=== PATIENT | female | born 1965 | race Caucasian/White ===

== ENCOUNTER 2019-06-11 08:16 | Outpatient (RCR) | payer BC, SELFPAY | END 2019-06-12 00:01 | LOC: ONCMED 08:16 | PROVIDERS: Family Provider Nurse Practitioner Family; Visit Provider Internal Medicine Medical Oncology | DX: D50.0 Iron deficiency anemia secondary to blood loss (chronic) (principal); D69.1 Qualitative platelet defects ==

== ENCOUNTER 2019-06-13 15:10 | Emergency (ER) | payer BC, SELFPAY ==
--- NOTE | 2019-06-13 | XRR_ITS ---
PROCEDURE INFORMATION: Exam: XR Left Knee Exam date and time: 06/13/2019 4:28 PM Age: 53 years old Clinical indication: Injury or trauma; Fall; Initial encounter; Blunt trauma; Knee; Left; Injury date: 06/13/19; Additional info: Unknown TECHNIQUE: Imaging protocol: XR Left knee. Views: 3 views. COMPARISON: No relevant prior studies available. FINDINGS: Bones/joints: There is no joint effusion. The bone density is appropriate. No periosteal reaction. No osteomyelitis. No acute fracture or dislocation. No bony destructive changes. Soft tissues: No foreign body. No gas in the soft tissues. XR/XR knee LT 3V* [id number] IMPRESSION: No acute bony abnormality.
[2019-06-13 15:49] VITALS: BP 186/105; PULSE 98; RESP 16; TEMP 37.3; O2SAT 98; BMI 30.4
--- NOTE | 2019-06-13 16:03 | CTR_ITS ---
PROCEDURE INFORMATION: Exam: CT Maxillofacial Without Contrast Exam date and time: 06/13/2019 4:21 PM Age: 53 years old Clinical indication: Injury or trauma; Fall; Initial encounter; Blunt trauma (contusions or hematomas); Nose and lip/oral cavity; Upper; Injury date: 06/13/19; Additional info: Unknown TECHNIQUE: Imaging protocol: Computed tomography images of the face without contrast. Total DLP: 7742.17 mGy-cm Radiation optimization: All CT scans at this facility use at least one of these dose optimization techniques: automated exposure control; mA and/or kV adjustment per patient size (includes targeted exams where dose is matched to clinical indication); or iterative reconstruction. COMPARISON: No relevant prior studies available. FINDINGS: Orbits: Orbits are normal. Globes are unremarkable. Sinuses: Normal. No air-fluid levels. Bones/joints: No acute fracture. Soft tissues: There is mild soft tissue edema overlying the left frontal bone superior to the left orbit.. CT/CT facial bones wo con* [id number] IMPRESSION: No acute fracture. Mild soft tissue edema is noted. Radiation Dose CTDIVOL = (mGy): DLP = 7742.17 (mGy-cm)
--- NOTE | 2019-06-13 16:07 | XRR_ITS ---
PROCEDURE INFORMATION: Exam: XR Cervical Spine, 2 or 3 Views Exam date and time: 06/13/2019 4:27 PM Age: 53 years old Clinical indication: Injury or trauma; Fall; Initial encounter; Blunt trauma; Injury date: 06/13/19; Additional info: Unknown TECHNIQUE: Imaging protocol: XR of the cervical spine, 2 or 3 views. COMPARISON: No relevant prior studies available. FINDINGS: Vertebrae: There diffuse degenerative changes. Disc space narrowing and endplate sclerosis with marginal osteophytes are greatest at C 5 6 and C6-C7. No acute fracture. Normal alignment. Vasculature: There is a right IJ port with tip off the film. Soft tissues: Normal. XR/XR cervical spine 2V* [id number] IMPRESSION: No acute bony abnormality. Degenerative changes are noted.
--- NOTE | 2019-06-13 16:07 | XRR_ITS ---
PROCEDURE INFORMATION: Exam: XR Left Wrist Exam date and time: 06/13/2019 4:27 PM Age: 53 years old Clinical indication: Injury or trauma; Fall; Initial encounter; Blunt trauma (contusions or hematomas; Wrist; Left; Injury date: 06/14/19; Additional info: Unknown TECHNIQUE: Imaging protocol: XR Left wrist. Views: 1 or 2 views. COMPARISON: No relevant prior studies available. FINDINGS: Bones/joints: Normal. Soft tissues: Normal. XR/XR wrist LT 2V [id number] IMPRESSION: No acute findings.
--- NOTE | 2019-06-13 17:25 | W.ED.FALL ---
HPI - Fall General: Chief Complaint: Fall Stated Complaint: fall with multiple complaints Time Seen by Provider: 06/13/19 17:27 PFSH ED PFSH: Statuses (acute, chronic, etc) shown below reflect problem list status as previously entered and may not be historically accurate Social History Smoking and tobacco status: never smoked Course Vital Signs: Vital signs: Vital Signs Temperature 99.1 F 06/13/19 15:49 Pulse Rate 98 06/13/19 15:49 Respiratory Rate 16 06/13/19 15:49 Blood Pressure 186/105 06/13/19 15:49 Pulse Oximetry 98 06/13/19 15:49 Coding Level of Care Code ED Acetylene Cutter for Amber Pringle
--- NOTE | 2019-06-13 17:27 | W.ED.FALL ---
HPI - Fall General: Chief Complaint: Fall Stated Complaint: fall with multiple complaints Time Seen by Provider: 06/13/19 17:27 Source: patient Mode of arrival: ambulatory Limitations: no limitations History of Present Illness: HPI Narrative: 53 yo f came to the er pov for fall. 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 Pt states that she was standing when she fell. Pt states that she fell flat on her face. Pt does have some mild pain in her neck and face along with left knee and wrist. There is also some swelling in the left knee and wrist. Pt denies any loc at this time. MD complaint: fall Fall from: standing Place fall occurred: home Loss of consciousness: None Location of injury: face and neck Location of injury - extremities: Left: hand and knee Severity: moderate Severity scale (1-10): 4 Associated symptoms-after fall: Reports neck pain; Denies no associated symptoms, abdominal pain or headache(s) Review of Systems General: Reports: 10 or more systems reviewed and unremarkable except in HPI and below Const: Denies: fever Eyes: Denies: change in vision ENMT: Denies: throat pain Resp: Denies: shortness of breath GI: Denies: abdominal pain : Denies: flank pain Musc: Reports: neck pain, extremity pain and extremity swelling Skin/Breast: Denies: rash Neuro: Denies: headache Psych: Denies: anxiety Endo: Denies: excessive urination Juan/Lymph: Denies: easy bruising All/Imm: Denies: hives PFSH ED PFSH: Statuses (acute, chronic, etc) shown below reflect problem list status as previously entered and may not be historically accurate Social History Smoking and tobacco status: never smoked Physical Exam Const: COMMON NORMALS: oriented x3 EXAM LIMITATIONS: no altered mental status GENERAL APPEARANCE: cooperative ORIENTATION/CONSCIOUSNESS: Yes awake, Yes oriented to person, Yes oriented to place and Yes oriented to time HENMT: HEAD & SCALP: laceration (above lip, middle of nose) Eye: COMMON NORMALS: PERRL PUPIL: Yes PERRL Chest: COMMONS NORMALS: inspection of chest normal Resp: COMMON NORMALS: normal respiratory effort GI: COMMON NORMALS: normal to inspection, nondistended, normoactive bowel sounds : COMMON NORMALS: Yes no CVA tenderness BLADDER/KIDNEY EXAM: Yes no CVA tenderness Back/Pelvis: COMMON NORMALS: no CVA tenderness Extremity: COMMON NORMALS: normal to inspection Neuro: COMMON NORMALS: oriented x3 SENSORIUM/ORIENTATION: Yes oriented to person, Yes oriented to place and Yes oriented to time Skin: COMMON NORMALS: no rashes or lesions noted GENERAL SKIN EXAM: no rashes or lesions noted Course Vital Signs: Vital signs: Vital Signs Temperature 99.1 F 06/13/19 15:49 Pulse Rate 98 06/13/19 15:49 Respiratory Rate 16 06/13/19 15:49 Blood Pressure 186/105 06/13/19 15:49 Pulse Oximetry 98 06/13/19 15:49 Coding Level of Care Code ED Conference Center Manager for Amber Pringle
--- NOTE | 2019-06-13 19:00 | W.ED.FALL ---
HPI - Fall General: Chief Complaint: Fall Stated Complaint: fall with multiple complaints Time Seen by Provider: 06/13/19 17:27 Source: patient Mode of arrival: ambulatory History of Present Illness: Place fall occurred: home Review of Systems General: Reports: 10 or more systems reviewed and unremarkable except in HPI and below PFSH ED PFSH: Statuses (acute, chronic, etc) shown below reflect problem list status as previously entered and may not be historically accurate Social History Smoking and tobacco status: never smoked Physical Exam Const: COMMON NORMALS: oriented x3 and alert GENERAL APPEARANCE: cooperative HENMT: COMMON NORMALS: external nose normal (large abrasion to the bridge of the nose) HEAD & SCALP: abrasion and contusion FACE & SINUS: facial abrasion, facial ecchymosis, facial erythema and facial laceration NOSE: external nose normal (large abrasion to the bridge of the nose) Neck/C-Spine: COMMON NORMALS: full ROM GENERAL: Yes normal visual inspection CERVICAL SPINE: Yes cervical ROM normal, Yes cervical ROM abnormal and Yes pain with cervical ROM Extremity: RIGHT UPPER EXTREMITY: Yes hand & digits LEFT UPPER EXTREMITY: Yes hand & digits (swelling and abrasion) Neuro: COMMON NORMALS: oriented x3 SENSORIUM/ORIENTATION: Yes alert CRANIAL NERVES: Yes CN normal except as noted GAIT: Yes normal gait Skin: TRAUMA: abrasion (face and nose) and laceration Procedures Laceration Laceration 1: Site: face and lip Size (cm): 2 Description: irregular Depth: simple, single layer Local Anesthetic: lidocaine 1% and with epi Skin layer closed with: nylon Size (cm): 6-0 Number of sutures: 1 Technique: simple, interrupted Course Vital Signs: Vital signs: Vital Signs Temperature 99.1 F 06/13/19 15:49 Pulse Rate 98 06/13/19 15:49 Respiratory Rate 16 06/13/19 15:49 Blood Pressure 186/105 06/13/19 15:49 Pulse Oximetry 98 06/13/19 15:49 Discharge Plan Discharge Patient Disposition: Home, Self-Care Clinical Impression: Fall, Facial abrasion, Contusion of face, Laceration of lip without complication Condition: Stable Prescriptions: No Action Vitamin C 1,000 mg Tablet 500 mg PO DAILY RF: 0 liothyronine 25 mcg tablet 25 mcg PO DAILY RF: 0 metformin 1,000 mg Tablet 1,000 mg PO BID RF: 0 levothyroxine 150 mcg tablet 150 mcg PO DAILY RF: 0 lisinopril 2.5 mg tablet 2.5 mg PO DAILY RF: 0 Nortrel 1/35 (28) 1-35 mg-mcg tablet 1 tab PO DAILY RF: 0 ferrous gluconate 324 mg (38 mg iron) Tablet 324 mg PO BID RF: 0 Referrals: Grecia Eller APN [Primary Care Provider] - Patient Instructions: Contusion, Laceration (ED), Abrasion (ED) Activity Restrictions/Additional Instructions: Keep wounds clean and dry Clean twice a day with hydrogen peroxide Return to the ER or see your primary care physician in 7 days for suture removal Ice packs for pain and swelling 20 minutes at a time Return to the ER for any problems or concerns Coding Level of Care Code ED Textile Science Technician for Amber Pringle Exam Problem Focused
--- NOTE | 2019-06-13 19:07 | ED_ITS ---
HPI - Fall General: Chief Complaint: Fall Stated Complaint: fall with multiple complaints Time Seen by Provider: 06/13/19 17:27 Source: patient Mode of arrival: ambulatory History of Present Illness: Place fall occurred: home Review of Systems General: Reports: 10 or more systems reviewed and unremarkable except in HPI a nd below PFSH ED PFSH: Statuses (acute, chronic, etc) shown below reflect problem list status as previously entered and may not be historically accurate Social History Smoking and tobacco status: never smoked Physical Exam Const: COMMON NORMALS: no apparent distress, oriented x3 and alert GENERAL APPEARANCE: cooperative and in distress (mild) ORIENTATION/CONSCIOUSNESS: Yes oriented to person, Yes oriented to place and Yes oriented to time HENMT: COMMON NORMALS: external nose normal (Large abrasion to the bridge of the nose) HEAD & SCALP: abrasion, contusion and laceration NOSE: external nose normal (Large abrasion to the bridge of the nose) and septum normal MOUTH: lip normal (2 cm x 2 cm partial-thickness abrasion with continued bleeding) and lip abnormal (Swelling and hematoma) Neck/C-Spine: COMMON NORMALS: full ROM and no meningeal signs GENERAL: Yes normal visual inspection CERVICAL SPINE: Yes cervical ROM normal Extremity: LEFT UPPER EXTREMITY: Yes wrist (Moderate swelling and contusion) LEFT LOWER EXTREMITY: Yes knee joint (Tenderness to palpation with mild abrasion) Neuro: COMMON NORMALS: oriented x3, CN's II-XII intact bilaterally, moves all extremities, no focal motor deficits, no sensory deficits noted, deep tendon reflexes 2+ bilaterally and gait normal SENSORIUM/ORIENTATION: Yes alert, Yes oriented to person, Yes oriented to place and Yes oriented to time MENINGEAL SIGNS: Yes no meningeal signs CRANIAL NERVES: Yes CN normal except as noted GAIT: Yes normal gait Skin: TRAUMA: other (Multiple abrasions and contusions to the forehead, nose, and upper lip) Procedures Laceration Laceration 1: Site: lip (2 cm x 2 cm partial-thickness abrasion) Description: irregular and contaminated Depth: simple, single layer Local Anesthetic: lidocaine 1% and with epi Pre-repair: wound explored Skin layer closed with: nylon Size (cm): 6-0 Number of sutures: 1 Course Vital Signs: Vital signs: Vital Signs Temperature 99.1 F 06/13/19 15:49 Pulse Rate 98 06/13/19 15:49 Respiratory Rate 16 06/13/19 15:49 Blood Pressure 186/105 06/13/19 15:49 Pulse Oximetry 98 06/13/19 15:49 Discharge Plan Discharge Patient Disposition: Home, Self-Care Clinical Impression: Fall, Facial abrasion, Contusion of face, Laceration of lip without complication Condition: Stable Prescriptions: No Action Vitamin C 1,000 mg Tablet 500 mg PO DAILY RF: 0 liothyronine 25 mcg tablet 25 mcg PO DAILY RF: 0 metformin 1,000 mg Tablet 1,000 mg PO BID RF: 0 levothyroxine 150 mcg tablet 150 mcg PO DAILY RF: 0 lisinopril 2.5 mg tablet 2.5 mg PO DAILY RF: 0 Nortrel 1/35 (28) 1-35 mg-mcg tablet 1 tab PO DAILY RF: 0 ferrous gluconate 324 mg (38 mg iron) Tablet 324 mg PO BID RF: 0 Referrals: Grecia Eller APN [Primary Care Provider] - Patient Instructions: Laceration (ED), Abrasion (ED), Contusion Coding Level of Care Code ED Medical Administrative for Amber Pringle
--- NOTE | 2019-06-13 19:14 | PC.NURSE ---
Report received from CHELSEA Zacarias and transferred to CHELSEA Garcia
[2019-06-13 19:52] VITALS: BP 150/92; PULSE 101; RESP 18; O2SAT 96
== END 2019-06-13 20:00 | disposition home or self-care (01) ==
PROVIDERS: Emergency Provider Family Medicine; Family Provider Nurse Practitioner Family; PCP Nurse Practitioner Family
DX: S01.511A Laceration without foreign body of lip, initial encounter (principal); S00.83XA Contusion of other part of head, initial encounter; W19.XXXA Unspecified fall, initial encounter; Z79.84 Long term (current) use of oral hypoglycemic drugs
CPT/HCPCS: 12011; 70486; 72040; 73100; 73562; 99282; J2001

== ENCOUNTER → 2019-06-18 07:37 | Outpatient (BNVA) | payer BC, SELFPAY | PROVIDERS: Family Provider Nurse Practitioner Family; PCP Nurse Practitioner Family; Visit Provider Nurse Practitioner Family | DX: Z09 Encounter for follow-up examination after completed treatment for conditions other than malignant neoplasm (principal); E11.9 Type 2 diabetes mellitus without complications; D64.9 Anemia, unspecified; S00.83XA Contusion of other part of head, initial encounter; S00.81XA Abrasion of other part of head, initial encounter; X58.XXXA Exposure to other specified factors, initial encounter | CPT/HCPCS: 83036; 85025 ==

== ENCOUNTER → 2019-07-02 11:42 | Outpatient (BNVA) | payer BC, SELFPAY | PROVIDERS: Family Provider Nurse Practitioner Family; PCP Nurse Practitioner Family; Visit Provider Internal Medicine Medical Oncology | DX: D64.9 Anemia, unspecified (principal) | CPT/HCPCS: 85025 ==

== ENCOUNTER 2019-07-10 05:47 | Outpatient (RCR) | payer BC, SELFPAY ==
[2019-07-09] VITALS (9 sets, daily range): BP systolic 131–168; BP diastolic 77–84; PULSE 94–106; RESP 18; TEMP 37–37.4; O2SAT 18–99
[2019-07-09 08:54] LABS: Basophils % 0.3 %; Eosinophils # 0.1 10^3/uL (0.0-0.8); Lymphocytes # 0.8 10^3/uL (0.8-4.8); Lymphocytes % 13.7 %; Mean Corpuscular HGB Conc 27.4 g/dL (30.0-36.0); Mean Corpuscular Hemoglobin 24.6 pg (28.0-34.0); Mean Corpuscular Volume 89.7 fL (81-99); Mean Platelet Volume 12.4 fL (7.4-10.4); Monocytes # 0.5 10^3/uL (0.2-0.9); Monocytes % 8.4 %; Neutrophils # 4.6 10^3/uL (1.8-7.7); Neutrophils % 76.1 %; Nucleated Red Blood Cells % 0 %; Platelet Count 249 10^3/cmm (130-400); Red Blood Count 2.32 10^6/uL (4.1-5.3); Red Cell Distribution Width 13.9 % (12.1-15.1); White Blood Count 6.1 10^3/uL (4.0-10.0)
[2019-07-09 08:58] LABS: Hematocrit 20.8 % (37.0-47.0); Hemoglobin 5.7 g/dL (11.5-15.3)
[2019-07-09 09:09] LABS: Alanine Aminotransferase 17 U/L (0-33); Albumin Level 3.3 g/dL (3.5-5.2); Alkaline Phosphatase 53 IU/L (35-105); Anion Gap 17.5 (5-19); Aspartate Amino Transferase 16 U/L (0-32); Blood Urea Nitrogen 12 mg/dL (6-20); Calcium 8.6 mg/dL (8.5-10.5); Carbon Dioxide 18 mmol/L (22-29); Chloride 100 mmol/L (98-107); Glomerular Filtration Rate 103.8 mL/min (90-130); Glucose 357 mg/dL (74-109); Potassium 4.5 mmol/L (3.5-5.1); Sodium 131 mmol/L (136-145); Total Bilirubin 0.2 mg/dL (0.15-1.2); Total Protein 6.3 g/dL (6.6-8.7)
[2019-07-09] MEDS: acetaminophen 325 mg Tablet 650 MG PO (09:25)
[2019-07-09] MEDS: diphenhydrAMINE 25 mg Capsule PO (09:36)
[2019-07-09] MEDS: hydrocortisone 10 mg Tablet 50 MG PO (09:37)
[2019-07-09] MEDS: sodium chloride 0.9% 250 ML 999 ML IV (10:10)
[2019-07-09] MEDS: FUROsemide 10 mg/mL SDV 2mL 20 MG IV (15:12)
[2019-07-10 09:05] VITALS: BP 141/82; PULSE 88; RESP 18; TEMP 36.8; O2SAT 100
[2019-07-10 09:20] VITALS: BP 150/84; PULSE 83; RESP 18; TEMP 36.9; O2SAT 99
[2019-07-10 09:35] VITALS: BP 144/81; PULSE 85; RESP 18; TEMP 37.1; O2SAT 100
[2019-07-10 12:50] VITALS: BP 148/82; PULSE 96; RESP 18; TEMP 36.8; O2SAT 97
[2019-07-10] MEDS: hydrocortisone 10 mg Tablet 50 MG PO (14:02)
[2019-07-10] MEDS: acetaminophen 325 mg Tablet 650 MG PO (14:02)
[2019-07-10] MEDS: diphenhydrAMINE 25 mg Capsule PO (14:03)
[2019-07-11] VITALS (10 sets, daily range): BP systolic 147–166; BP diastolic 79–91; PULSE 92–97; RESP 18; TEMP 36.4–37.3; O2SAT 96–99
[2019-07-11 10:33] LABS: Basophils % 0.2 %; Eosinophils # 0.1 10^3/uL (0.0-0.8); Eosinophils % 1.8 %; Hematocrit 24.3 % (37.0-47.0); Hemoglobin 7.1 g/dL (11.5-15.3); Lymphocytes % 17.7 %; Mean Corpuscular HGB Conc 29.2 g/dL (30.0-36.0); Mean Corpuscular Hemoglobin 25.8 pg (28.0-34.0); Mean Corpuscular Volume 88.4 fL (81-99); Mean Platelet Volume 12.3 fL (7.4-10.4); Monocytes # 0.7 10^3/uL (0.2-0.9); Monocytes % 12.4 %; Neutrophils # 3.7 10^3/uL (1.8-7.7); Neutrophils % 67.2 %; Nucleated Red Blood Cells % 0 %; Platelet Count 193 10^3/cmm (130-400); Red Blood Count 2.75 10^6/uL (4.1-5.3); Red Cell Distribution Width 15.3 % (12.1-15.1); White Blood Count 5.5 10^3/uL (4.0-10.0)
[2019-07-11] MEDS: FUROsemide 10 mg/mL SDV 2mL 20 MG IV (14:30)
[2019-07-11] MEDS: sodium chloride 0.9% 250 ML 999 ML IV (15:45)
[2019-07-11] MEDS: hydrocortisone 10 mg Tablet 50 MG PO (15:46)
[2019-07-11] MEDS: diphenhydrAMINE 25 mg Capsule PO (15:47)
[2019-07-11] MEDS: acetaminophen 325 mg Tablet 650 MG PO (15:48)
== END 2019-07-13 23:59 | disposition home or self-care (01) ==
LOC: ONCMED 05:47
PROVIDERS: Family Provider Nurse Practitioner Family; PCP Nurse Practitioner Family; Visit Provider Internal Medicine Medical Oncology
DX: D69.1 Qualitative platelet defects (principal)
CPT/HCPCS: 36430; 80053; 85025; 86850; 86900; J1940; J7050; J8499; P9037; P9040

== ENCOUNTER → 2019-07-11 09:18 | Outpatient (BNVA) | payer BC, SELFPAY | PROVIDERS: Family Provider Nurse Practitioner Family; PCP Nurse Practitioner Family; Visit Provider Internal Medicine Medical Oncology | DX: Z01.89 Encounter for other specified special examinations (principal) | CPT/HCPCS: 85025 ==

== ENCOUNTER → 2019-07-17 09:40 | Outpatient (BNVA) | payer BC, SELFPAY | PROVIDERS: Visit Provider Internal Medicine | DX: B19.20 Unspecified viral hepatitis C without hepatic coma (principal); Z86.19 Personal history of other infectious and parasitic diseases; D69.1 Qualitative platelet defects | CPT/HCPCS: 85025 ==

== ENCOUNTER → 2019-07-23 09:20 | Outpatient (BNVA) | payer BC, SELFPAY | PROVIDERS: Visit Provider Internal Medicine Medical Oncology | DX: D64.9 Anemia, unspecified (principal) | CPT/HCPCS: 85025 ==

== ENCOUNTER 2019-07-27 05:45 | Outpatient (RCR) | payer BC, SELFPAY ==
[2019-07-25] MEDS: sodium chloride 0.9% 250 ML 999 ML IV (09:00)
[2019-07-25 09:05] VITALS: BP 150/82; PULSE 80; RESP 18; TEMP 36.9; O2SAT 100
[2019-07-25 09:50] VITALS: BP 165/80; RESP 18
[2019-07-25 10:10] VITALS: BP 181/79; PULSE 99; RESP 26; TEMP 37.2; O2SAT 97
[2019-07-25 10:15] VITALS: BP 165/84; PULSE 75; RESP 18; TEMP 36.9; O2SAT 100
[2019-07-25] MEDS: acetaminophen 325 mg Tablet 650 MG PO (14:55)
[2019-07-25] MEDS: diphenhydrAMINE 25 mg Capsule PO (14:55)
[2019-07-25] MEDS: hydrocortisone 10 mg Tablet 50 MG PO (14:56)
[2019-07-27] MEDS: sodium chloride 0.9% 250 ML 999 ML IV (09:40)
[2019-07-27] MEDS: acetaminophen 325 mg Tablet 650 MG PO (09:40)
[2019-07-27 11:13] VITALS: BP 189/100; PULSE 112; RESP 28; TEMP 37.2; O2SAT 89
[2019-07-27] MEDS: hydrocortisone 10 mg Tablet 50 MG PO ×2 (11:26→11:27)
[2019-07-27] MEDS: diphenhydrAMINE 25 mg Capsule PO (11:26)
== END 2019-08-11 23:59 | disposition home or self-care (01) ==
LOC: ONCMED 05:45
PROVIDERS: Visit Provider Internal Medicine Medical Oncology
DX: D69.1 Qualitative platelet defects (principal); D50.9 Iron deficiency anemia, unspecified
CPT/HCPCS: 36430; 36591; 86900; J7050; J8499; P9035

== ENCOUNTER → 2019-07-30 14:09 | Outpatient (BNVA) | payer BC, SELFPAY | PROVIDERS: Visit Provider Internal Medicine Medical Oncology | DX: D69.1 Qualitative platelet defects (principal) | CPT/HCPCS: 85007; 85027 ==

== ENCOUNTER → 2019-08-15 09:45 | Outpatient (BNVA) | payer BC, SELFPAY | PROVIDERS: Visit Provider Internal Medicine Medical Oncology | DX: D69.1 Qualitative platelet defects (principal) | CPT/HCPCS: 85025 ==

== ENCOUNTER 2019-08-24 05:58 | Outpatient (RCR) | payer BC, SELFPAY | END 2019-09-11 23:59 | disposition home or self-care (01) | LOC: ONCMED 05:58 | PROVIDERS: Visit Provider Internal Medicine Medical Oncology | DX: Z45.2 Encounter for adjustment and management of vascular access device (principal) | CPT/HCPCS: 96523 ==

== ENCOUNTER 2019-09-19 07:03 | Outpatient (RCR) | payer BC, SELFPAY | END 2019-10-11 23:59 | disposition home or self-care (01) | LOC: ONCMED 07:03 | PROVIDERS: Visit Provider Internal Medicine Medical Oncology | DX: Z45.2 Encounter for adjustment and management of vascular access device (principal) | CPT/HCPCS: 96523 ==

== ENCOUNTER 2019-10-19 06:57 | Outpatient (RCR) | payer BC, SELFPAY | END 2019-11-11 23:59 | disposition home or self-care (01) | LOC: ONCMED 06:57 | PROVIDERS: Visit Provider Internal Medicine Medical Oncology | DX: Z45.2 Encounter for adjustment and management of vascular access device (principal); D50.0 Iron deficiency anemia secondary to blood loss (chronic); D69.1 Qualitative platelet defects | CPT/HCPCS: 96523 ==

== ENCOUNTER → 2019-11-13 11:06 | Outpatient (BNVA) | payer BC, SELFPAY | PROVIDERS: Visit Provider Nurse Practitioner Family | DX: E11.9 Type 2 diabetes mellitus without complications (principal) | CPT/HCPCS: 80053; 80061; 83036; 85025 ==

== ENCOUNTER 2019-11-16 07:17 | Outpatient (CLI) | payer BC, SELFPAY | END 2019-11-16 07:18 | disposition home or self-care (01) | PROVIDERS: Visit Provider Internal Medicine Medical Oncology | DX: Z45.2 Encounter for adjustment and management of vascular access device (principal); D50.0 Iron deficiency anemia secondary to blood loss (chronic); D69.1 Qualitative platelet defects | CPT/HCPCS: 96523 ==

== ENCOUNTER 2019-12-25 06:45 | Outpatient (RCR) | payer BC, SELFPAY ==
[2019-12-24 11:43] LABS: Basophils % 0.2 %; Eosinophils # 0.1 10^3/uL (0.0-0.8); Eosinophils % 1.6 %; Hematocrit 37.9 % (37.0-47.0); Hemoglobin 12.4 g/dL (11.5-15.3); Lymphocytes # 1.1 10^3/uL (0.8-4.8); Lymphocytes % 21.3 %; Mean Corpuscular HGB Conc 32.7 g/dL (30.0-36.0); Mean Corpuscular Hemoglobin 29.5 pg (28.0-34.0); Mean Corpuscular Volume 90.2 fL (81-99); Mean Platelet Volume 12.1 fL (7.4-10.4); Monocytes # 0.6 10^3/uL (0.2-0.9); Monocytes % 12.6 %; Neutrophils # 3.14 10^3/uL (1.8-7.7); Neutrophils % 63.9 %; Nucleated Red Blood Cells % 0 %; Platelet Count 190 10^3/cmm (130-400); Red Cell Distribution Width 12.2 % (12.1-15.1); White Blood Count 4.9 10^3/uL (4.0-10.0)
[2019-12-25 11:05] VITALS: BP 153/84; PULSE 97; RESP 18; TEMP 36.9; O2SAT 99
[2019-12-25] MEDS: hydrocortisone 100 mg/2 mL SDV IV (15:32)
== END 2020-01-11 23:59 | disposition home or self-care (01) ==
LOC: ONCMED 06:45
PROVIDERS: PCP Nurse Practitioner Family; Visit Provider Internal Medicine Medical Oncology
DX: D69.1 Qualitative platelet defects (principal)
CPT/HCPCS: 36430; 36591; 85025; 86900; 96365; 96367; J1200; J1720; P9016

== ENCOUNTER 2020-01-25 06:32 | Outpatient (CLI) | payer BC, SELFPAY | END 2020-01-25 06:33 | disposition home or self-care (01) | LOC: ONCMED 06:34 | PROVIDERS: PCP Nurse Practitioner Family; Visit Provider Internal Medicine Medical Oncology | DX: Z45.2 Encounter for adjustment and management of vascular access device (principal) | CPT/HCPCS: 96523 ==

== ENCOUNTER 2020-01-28 13:13 | Outpatient (CLI) | payer BC, SELFPAY ==
--- NOTE | 2020-01-28 13:18 | CT_ITS ---
WS: [id number] CT HEAD WITH AND WITHOUT CONTRAST HISTORY: BLEEDING DISORDER/DYSEQUILIBRIUM TECHNIQUE: Noncontrast 2.5 mm axial images obtained from the vertex to the skull base. Additional ronald ging performed at 2.5 mm axial images status post IV contrast. Bone and soft tissue windows are revie wed. All CT scans at [facility] use at least one of these dose optimization techniques: a utomated exposure control; mA and/or kV adjustment per patient size (includes targeted exams where do se is matched to clinical indication); or iterative reconstruction. CONTRAST: Omnipaque 300; 95 mL IV. DLP: 1183.97 mGy.cm COMPARISON: None available. No acute intracranial hemorrhage, edema or midline shift. Mild atrophy and mild chronic microvascular ischemic disease. There is a small lacunar infarct in the LEFT centrum semiovale ovale. Additional s mall lacunar infarct in the RIGHT internal capsule. No enhancing mass or vascular malformations identified. Hyperdense RIGHT frontal extra-axial 7.6 mm n odule is probably a benign calcified meningioma. Dural venous sinuses are normally enhancing. Visualized [place] is unremarkable. Paranasal sinuses as visualized: Clear. Mastoid air cells: Clear. Calvarium and scalp: Intact. CT/CT head wo/w con [id number] IMPRESSION: 1. No enhancing masses or hemorrhage. 2. Mild atrophy and chronic ischemic disease. 3. RIGHT frontal extra-axial meningioma.
[2020-01-28] MEDS: iohexol 300 mg/mL 100 mL Btl IV (13:42)
== END 2020-01-28 13:14 | disposition home or self-care (01) ==
LOC: RAD 13:16
PROVIDERS: PCP Nurse Practitioner Family; Visit Provider Internal Medicine Medical Oncology
DX: D69.9 Hemorrhagic condition, unspecified (principal); R42 Dizziness and giddiness; I67.82 Cerebral ischemia; G31.9 Degenerative disease of nervous system, unspecified; D32.0 Benign neoplasm of cerebral meninges
CPT/HCPCS: 70470

== ENCOUNTER → 2020-02-04 12:17 | Outpatient (BNVA) | payer BC, SELFPAY | PROVIDERS: PCP Nurse Practitioner Family; Visit Provider Nurse Practitioner Family | DX: E11.9 Type 2 diabetes mellitus without complications (principal); K29.00 Acute gastritis without bleeding; Z68.31 Body mass index [BMI] 31.0-31.9, adult | CPT/HCPCS: 80053; 80061; 82150; 83036; 83690; 84443; 85025 ==

== ENCOUNTER 2020-02-29 08:11 | Outpatient (CLI) | payer BC, SELFPAY | END 2020-02-29 08:12 | disposition home or self-care (01) | PROVIDERS: PCP Nurse Practitioner Family; Visit Provider Internal Medicine Medical Oncology | DX: Z45.2 Encounter for adjustment and management of vascular access device (principal) | CPT/HCPCS: 96523 ==

== ENCOUNTER 2020-03-31 05:41 | Outpatient (CLI) | payer BC, SELFPAY ==
[2020-03-31 10:08] LABS: Basophils % 0.5 %; Eosinophils # 0.1 10^3/uL (0.0-0.8); Eosinophils % 1.6 %; Hematocrit 35.7 % (37.0-47.0); Hemoglobin 11.6 g/dL (11.5-15.3); Lymphocytes # 0.9 10^3/uL (0.8-4.8); Lymphocytes % 14.4 %; Mean Corpuscular HGB Conc 32.5 g/dL (30.0-36.0); Mean Corpuscular Hemoglobin 29.4 pg (28.0-34.0); Mean Corpuscular Volume 90.4 fL (81-99); Mean Platelet Volume 12.4 fL (7.4-10.4); Monocytes # 0.5 10^3/uL (0.2-0.9); Monocytes % 8.1 %; Neutrophils # 4.62 10^3/uL (1.8-7.7); Neutrophils % 75.1 %; Nucleated Red Blood Cells % 0 %; Platelet Count 221 10^3/cmm (130-400); Red Blood Count 3.95 10^6/uL (4.1-5.3); Red Cell Distribution Width 13.2 % (12.1-15.1); White Blood Count 6.2 10^3/uL (4.0-10.0)
[2020-03-31 10:33] LABS: Alanine Aminotransferase 47 U/L (0-33); Albumin Level 3.3 g/dL (3.5-5.2); Alkaline Phosphatase 75 IU/L (35-105); Anion Gap 16.4 (5-19); Aspartate Amino Transferase 50 U/L (0-32); Blood Urea Nitrogen 10 mg/dL (6-20); Calcium 9.5 mg/dL (8.5-10.5); Carbon Dioxide 22 mmol/L (22-29); Chloride 99 mmol/L (98-107); Globulin 3.2 g/dL (1.3-4.6); Glomerular Filtration Rate 86.9 mL/min (90-130); Glucose 320 mg/dL (65-115); Osmolality Calculated 287 mOsm/kg (285-295); Potassium 4.4 mmol/L (3.5-5.1); Sodium 133 mmol/L (136-145); Total Bilirubin 0.2 mg/dL (0.15-1.2); Total Protein 6.5 g/dL (6.6-8.7)
[2020-03-31 12:45] LABS: Ferritin 32 ng/mL (15-150); Iron 122 ug/dL (37-145); Percent Saturation 46.7 % (20-50); Total Iron Binding Capacity 261 mcg/dl; Unsaturated Iron Binding 139 ug/dL (112-347)
--- NOTE | 2020-03-31 20:01 | ONC FU_ITS ---
Johan Camacho Patient Note Patient: Korin Kee Unit #: [id number]: 1965 Dictated By: Brennan LudwigDate of Visit: Mar 31, 2020 Onc MED Follow-Up/Prog Note Chief Complaint: Glanzman thrombasthenia. 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 She has had lifelong easy bruising and other bleeding manifestations. She has been given platelets prophylactically prior to surgical procedures. She has been on long-term hormonal therapy to suppress her menstrual bleeding. She indicates that she used to have frequent nosebleeds, but those were generally managed with nasal packing. She hasn't been bothered with that for [address] Hurt had seen her initially on 06/30/2018 in regard to the persistent gum bleeding. At that time she indicated that her gums had been bleeding 24/7 for going on 2 years. The bleeding was severe enough to cause iron deficiency anemia. She had been seeing a history department chair in [place], and she had been given parenteral iron at least 3 or 4 times. She also was given a trial of therapy with tranexamic acid, but out benefit. She had not attempted any other specific treatment for the bleeding. She had been referred to Dr. Loco for treatment of hepatitis C, presumably transfusion related. Her laboratory studies on 06/19/2018 included a CBC which showed her hemoglobin low at 6.1 g. The serum iron studies showed low transferrin saturation at 4.6% with ferritin 17.0 ng/mL, consistent with iron deficiency. She had normal total bilirubin and just mildly elevated liver enzymes. Her B12 level was elevated at 1347 pg/mL with folate normal at 9.8 ng/mL. Her TSH level on 05/29/2018 was mildly elevated at 6.58 mIU/mL. She was transfused 2 units of PRBC on 06/20/2018. Despite that, her repeat CBC on 06/26/2018 showed further decrease in hemoglobin to 5.5 g. She was then given additional 2 units of PRBC on 06/26/2018 and on 06/29/2018. At that time her pro time was also checked and it was normal at 13.[address] Hurt had reviewed treatment options, which were very limited. We opted to proceed with a trial of platelet transfusion, and she was given a scheduled platelet pheresis on 07/03/2017 and on 07/06/2017. She also was given parenteral iron replacement with infusions of Injectafer on 07/06/2018 and 07/13/2018. She tolerated the platelet pheresis and the Injectafer infusions without adverse effects. 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 She also has a history of supraventricular tachycardia. She is a nonsmoker. She did have significant improvement in her gum bleeding following the initial platelet pheresis. As of 07/17/2018 her hemoglobin had increased to 10.2 g. She was then given another platelet pheresis on 07/18/2018, and on 07/20/2018 she underwent placement of portacath venous access device. She had no bleeding complications with the procedure. She then began a 2-week course of prophylactic therapy with tranexamic acid. He has of her follow-up visit on 08/10/2018 she was having more bruising of blood from the oral cavity, but it was tolerable. She was mildly anemic, and she did receive further parenteral iron replacement with Injectafer. During follow-up, she remained anemic, and she did receive 2 more infusions of Injectafer in September 2018. INTERIM HISTORY: In October 2018 she was given additional platelet pheresis. In December she required another transfusion of PRBC, and she was again given platelet pheresis. As of 01/15/2019 she required 2 more units PRBC with her hemoglobin back down to 7.3 g. Her repeat CBC on 02/15/2019 showed hemoglobin up to 9.5 g. Her serum iron studies at that time showed low transferrin saturation at 10% with ferritin 20.0 ng/mL, consistent with iron deficiency. She was given parenteral iron replacement with 2 additional infusions of Injectafer. That has been her last dose of Injectafer per our records. She did not do transfusion services until April 19, 2019. By May 14, 2019 her hemoglobin was back at 7.7 and she was transfused once again on June 04, July 09, 2019 when her hemoglobin was 5.7 and again on July 10, 2019. After that transfusion she was 7.1 and on July 23, 2019 she was 9.3 her hemoglobin on July 11, 2019 (I do not find a record of transfusion services around the state) was 7.1 and then recheck on July 23, 2019 was 9.3. After that her next CBC per our record was December 24, 2019 at which time her hemoglobin is reported at 12.4. She received platelets on December 25, 2019 for oral surgery the next day. She did not require follow-up platelets that she had no episodes of bleeding. Her last platelet pheresis was December 25, 2019 which was before oral surgery. Ms Kee is here today for followup. She reports that she is feeling well. She has had no episodes of bleeding. She states that she had oral surgery back in the summer she did have 1 unit of platelets before the surgery but did not require any after she had no problems with bleeding. Her main complaint is that she has disequilibrium. She states she had at last time she does tell Dr. Hurt and has no worse but no better. She actually did see a chiropractor and he did some cervical manipulations last week she states she really cannot tell a big difference yet but thinks it may take a few more days. Thus far she has not fallen but states she has quite walking beecause she was leaning to one side so bad she was afraid she would fall. She denies any headaches or vision changes with these spells. She states she does not really feel dizzy or nauseated just leans to 1 side. She states that when she has pain on her pants morning she has to hold onto something when she puts her right leg into her pants. She can do the left leg without any stability assistance. She denies any one-sided weakness or numbness other than as above. She has had no speech or memory problems. We did discuss that her glucose today was 320. She states she is been back on the glyburide for about a month and is following with Ariane Webster NP. She is also monitoring her TSH. She states is she eating good and denies any fever or chills. She has had no signs of infection. She denies any bowel or bladder concerns. Denies any lower extremity edema. She has chronic ecchymosis on her arms which is not new. Her ECOG is 2 Due to the disequilibrium. Past Medical History: Anxiety Glanzmann thrombasthenia Hepatitis C Hypothyroidism Iron deficiency anemia Seasonal depression Supraventricular tachycardia Type II diabetes Past Surgical History: Attempted but unsuccessful laser ablation of the uterus Cataract excision on the left eye Cholecystectomy Colposcopy Extraction of wisdom teeth Flu vac in 2019 Colonoscopy in 2015 Allergies: Aspirin, NSAIDs, and TraMADol HCl. Medications: Depo-Provera 1 Intramuscular q 6 weeks Ferrous Gluconate 1 Tablet (of 324 (37.5 fe) mg) Oral b.i.d. GlyBURIDE 1 Tablet (of 5 mg) Oral b.i.d. GNP Vitamin C 1 Tablet (of 500 mg) Oral daily Levothyroxine Sodium 1 Tablet (of 150 mcg) Oral daily Liothyronine Sodium 1 Tablet (of 25 mcg) Oral daily Lisinopril 1 Tablet (of 2.5 mg) Oral daily MetFORMIN HCl 1 Tablet (of 1000 mg) Oral b.i.d. Nortrel 0.5/35 (28) 1 Tablet Oral daily Family History: Ms. Kee's mother is alive. Ms. Kee's father at age 85: fall related injuries. Father at age 85 with complications of a fall/cerebral hemorrhage. Mother is still living at age 92. A maternal aunt had stomach and lung cancer. Social History: Ms. Kee is single and she is retired. Ms. Kee has never smoked. She drinks daily. She consumes 2 drinks/day 7 days/week. She is a nonsmoker. She drinks 1-2 glasses of wine daily. Review Of Symptoms: Constitutional Denies fevers, chills, night sweats, excessive fatigue or weight loss. Allergic/Immunologic No reactions. Eyes Denies significant visual changes. No diplopia. No amaurosis. ENMT Denies changes in hearing, sore throat, mouth sores, difficulty or changes in swallowing ability, and/or sinus drainage. Endocrine No diabetes, thyroid disease or hormone replacement. Denies hot flashes or night sweats. Hematologic/Lymphatic Denies easy bruising or bleeding. The patient denies any tender or palpable lymph nodes. Respiratory Denies dyspnea on exertion, chest pain, cough or hemoptysis. Denies orthopnea. Cardiovascular Denies anginal chest pain, palpitations or orthopnea. Gastrointestinal Denies nausea, vomiting, diarrhea, GI bleeding, or constipation. Denies change in bowel habits and/or stool color, no heartburn or early satiety. Genitourinary (F) No hematuria, hesitancy, incontinence, vaginal bleeding, discharge or other problems with urination. Musculoskeletal Denies joint pain, swelling or redness. No decreased range of motion. Integumentary Denies chronic rashes, inflammation, ulcerations or skin changes. Neurologic Denies headache, blurred vision, and no areas of focal weakness or numbness. Normal gait. No sensory problems. Psychiatric Denies insomnia, depression, kavin or mood swings. Vital Signs: Performed on Mar 31, 2020 11:34 Height - 68.00 in Weight - 210.8 lbs (HIGH) BSA - 2.09 sq.m BMI - 32.05 (HIGH) Temperature - 98.0 F (LOW) Pulse - 89 /min Respiration - 18 /min BP - 182/90 mm(hg) (HIGH) O2 Sat - 98 % Pain - 0,0 - Fully active, able to carry on all predisease activities without restrictions. (ECOG) Physical Examination: Constitutional Alert, oriented, no acute distress. Skin pink, warm and dry. Head Normocephalic; atraumatic. Eyes Conjunctivae and sclerae are clear and without icterus. Pupils are reactive and equal. Neck Supple without masses or thyromegaly. No jugular venous distension. Hematologic/Lymphatic No petechiae or purpura. No tender or palpable lymph nodes in the cervical or supraclavicular areas. Respiratory Lungs are clear to auscultation without rhonchi or wheezing. Cardiovascular Regular rate and rhythm of heart without murmurs,clicks, gallops or rubs. Abdomen Non-tender, non-distended, no masses or ascites. Back/Spine Non-tender to palpation. Extremities No visible deformities, no cyanosis, clubbing or edema. Bruising on arms-chronic Musculoskeletal No tenderness or swelling, normal range of motion without obvious weakness. Integumentary No rashes or lesions. Neurologic No sensory or motor deficits, normal cerebellar function, normal gait. Psychiatric Alert and oriented times three. Coherent speech. Verbalizes understanding of our discussions today. Laboratory:Test performed on Mar 31, 2020 09:47 Ferritin 32 ng/mL Iron 122 mcg/dL Sodium 133 mmol/L Iron Binding Capacity (TIBC) 261 mcg/dl Potassium 4.4 mmol/L % Iron Saturation 46.7 % Chloride 99 mmol/L CO2 22 mmol/L UIBC 139 mcg/dL Anion Gap 16.4 BUN 10 mg/dL Creatinine 0.7 mg/dL Cr Clearance (Est) 138.5000 mL/min eGFR 86.9 mL/min Glucose 320 mg/dL Osmolality - Calculated 287 mOsm/kg Calcium 9.5 mg/dL Protein, Total 6.5 g/dL Albumin 3.3 g/dL Globulin 3.2 g/dL Bilirubin, Total 0.2 mg/dL ALT (SGPT) 47 U/L AST (SGOT) 50 U/L Alkaline Phosphatase 75 IU/L WBC 6.2 10 3/uL RBC 3.95 10 6/uL HGB 11.6 g/dL HCT 35.7 % MCV 90.4 fL MCH 29.4 pg MCHC 32.5 g/dL RDW 13.2 % Platelet Count 221 10 3/cmm MPV 12.4 fL Neutrophils 4.62 10 3/uL Lymphocytes 0.9 10 3/uL Monocytes 0.5 10 3/uL Eosinophils 0.1 10 3/uL Basophils 0.0 10 3/uL Neutrophil % 75.1 % Lymphocyte % 14.4 % Monocyte % 8.1 % Eosinophil % 1.6 % Basophils % 0.5 % NRBC % 0 % Impression: 1. Patient with Glanzman thrombasthenia, initially diagnosed in 1975 at the [facility]. 2. She presented to me with persistent gum bleeding which had been refractory to treatment with tranexamic acid. 3. She had associated iron deficiency anemia, severe enough to require transfusion. Her other medical illnesses include: 4. Hepatitis C, presumably transfusion related. 5. Hypothyroidism with persistently elevated TSH despite relatively high dose therapy with levothyroxine. 6. Type II diabetes. 7. She has anxiety and seasonal depression. 8. She has a history of supraventricular tachycardia. She was given initial treatment withplatelet pheresis on 07/03 and on 07/11/2018.she also was given parenteral iron replacement with infusions of Injectafer on 07/06 and 07/13/2018.she had a very good clinical response to the plateletpheresis, and she has had some improvement in the anemia with the parenteral iron. She received one additional plateletpheresis prior to undergoing placement of Port-A-Cath venous access device. She had no bleeding complications with the procedure. During followup she had recurrence of gum bleeding, and she remained persistently anemic despite having parenteral iron replacement. She required further transfusions of PRBC in December and in January 2019, despite having additional platelet pheresis in December 2018. She was again given parenteral iron replacement in February 2019. Despite that, her hemoglobin was back down to 8.4 g at her followup on03/15/2019. She was not symptomatic with it. She did not have transfusion services until April 19, 2019. By May 14, 2019 her hemoglobin was back at 7.7 and she was transfused once again on June 04, July 09, 2019 when her hemoglobin was 5.7 and again on July 10, 2019. After that transfusion she was 7.1 and on July 23, 2019 she was 9.3 her hemoglobin on July 11, 2019 (I do not find a record of transfusion services around the state) was 7.1 and then recheck on July 23, 2019 was 9.3. After that her next CBC per our record was December 24, 2019 at which time her hemoglobin is reported at 12.4. She received platelets on December 25, 2019 for oral surgery the next day. She did not require follow-up platelets that she had no episodes of bleeding. Her last platelet pheresis was December 25, 2019 which was before oral surgery. Plan: 1, Continue observation and transfusion services and plate pheresis as needed. 2. Labs from today were reviewed in detail and discussed with Ms. Kee and a copy was given to her. WBC 6.2, hemoglobin 11.6, platelets 221,000 ANC is 4620. Creatinine 0.7 potassium 4.4 random glucose nonfasting 320. ALT 47 AST is 50. This is slightly elevated for her. She does have a history of hepatitis C. She has had no complaints of abdominal pain, jaundice etc. her bilirubin was 0.2. 3. She states she had a flu vac earlier this month. 4. Her mammography is current she had a February 2020. She reports that she had gynecology follow-up on January 2020. 5. Her glucose is being monitored by Ariane Webster NP and states that she has been adjusting her glyburide within the last month. She is also managing her hypothyroidism. 6. We will refer her to neurology for her disequilibrium. She has had cervical manipulation by a chiropractor with minimal improvement. She is also had a head CT with and without contrast on January 28, 2020. There were no enhancing masses or hemorrhages. There was mild atrophy and chronic ischemic disease. Right frontal extra axial meningioma. She is had no further work-up. 7. I have asked her to recheck her chemistry in 1 month with her port flush just because of the slightly elevated LFTs. 8. We will plan to see her back in 1 year with CBC CMP with interim labs as needed. 9. Mrs. Kee was instructed to contact us in the interim should questions or problems arise. Signed By: Anibal LudwigNLuis <<Signature on File>>
== END 2020-03-31 05:42 | disposition home or self-care (01) ==
LOC: ONCMED 05:44
PROVIDERS: PCP Nurse Practitioner Family; Visit Provider Nurse Practitioner
DX: D69.1 Qualitative platelet defects (principal); D50.9 Iron deficiency anemia, unspecified; R42 Dizziness and giddiness; B19.20 Unspecified viral hepatitis C without hepatic coma; E03.9 Hypothyroidism, unspecified; E11.9 Type 2 diabetes mellitus without complications; F41.9 Anxiety disorder, unspecified; F33.9 Major depressive disorder, recurrent, unspecified; Z86.79 Personal history of other diseases of the circulatory system; Z79.84 Long term (current) use of oral hypoglycemic drugs
CPT/HCPCS: 36591; 80053; 82728; 83540; 83550; 85025; 99214

== ENCOUNTER → 2020-04-24 10:57 | Outpatient (BNVA) | payer BC, SELFPAY | PROVIDERS: PCP Nurse Practitioner Family; Visit Provider Nurse Practitioner Family | DX: Z11.59 Encounter for screening for other viral diseases (principal); J06.9 Acute upper respiratory infection, unspecified; Z20.828 Contact with and (suspected) exposure to other viral communicable diseases | CPT/HCPCS: 87635 ==

== ENCOUNTER 2020-05-28 10:26 | Outpatient (CLI) | payer BC, SELFPAY | END 2020-05-28 10:27 | disposition home or self-care (01) | PROVIDERS: PCP Nurse Practitioner Family; Visit Provider Nurse Practitioner | DX: Z45.2 Encounter for adjustment and management of vascular access device (principal) | CPT/HCPCS: 96523 ==

== ENCOUNTER 2020-06-27 11:03 | Outpatient (CLI) | payer BC, SELFPAY | END 2020-06-27 11:04 | disposition home or self-care (01) | PROVIDERS: PCP Nurse Practitioner Family; Visit Provider Nurse Practitioner | DX: Z45.2 Encounter for adjustment and management of vascular access device (principal) | CPT/HCPCS: 96523 ==

== ENCOUNTER → 2020-07-01 11:30 | Outpatient (BNVA) | payer BC, SELFPAY | PROVIDERS: PCP Nurse Practitioner Family; Visit Provider Nurse Practitioner Family | DX: D64.9 Anemia, unspecified (principal); E11.9 Type 2 diabetes mellitus without complications; E03.9 Hypothyroidism, unspecified; M79.10 Myalgia, unspecified site; R42 Dizziness and giddiness | CPT/HCPCS: 80053; 80061; 82306; 82607; 83036; 83735; 84443; 85025; 85651 ==

== ENCOUNTER → 2020-07-02 15:08 | Outpatient (BNVA) | payer BC, SELFPAY | PROVIDERS: PCP Nurse Practitioner Family; Visit Provider Nurse Practitioner Family | DX: E11.9 Type 2 diabetes mellitus without complications (principal); R26.81 Unsteadiness on feet | CPT/HCPCS: 82043 ==

== ENCOUNTER 2020-07-10 10:58 | Outpatient (CLI) | payer BC, SELFPAY ==
--- NOTE | 2020-07-10 11:05 | MR_ITS ---
WS: [id number] MRI HEAD WITH CONTRAST TECHNIQUE: Sagittal T1, T2 axial, T2 axial FLAIR, axial susceptibility weighted imaging, axial diffus ion weighted images, and coronal T2 images were obtained. Pre and post-T1 axial and post T1 coronal i mages. ADC and FSPGR images. CLINICAL INFORMATION: R26.81 - Unsteadiness on feet COMPARISON: CT January 28, 2020 FINDINGS: No evidence of restricted diffusion to suggest acute ischemia. Ventricular system and basal cisterns are patent. Moderate small vessel changes. Moderate parenchymal volume loss. Small vessel changes in the joy. Chronic lacunar infarcts in the johnson radiata. Tiny chronic lacunar infarcts in the thalam i. Normal posterior fossa. Normal vascular flow voids at the skull base. No extra-axial fluid collect ions. Paranasal sinuses and mastoid air cells are well aerated. Normal posterior nasopharynx. No hemosiderin on the susceptibility weighted images. Right frontal enhancing meningioma unchanged si nce the prior CT measuring 6 mm. No underlying edema or mass effect. Additional 5 mm meningioma overl katelynn the right frontal lobe and tiny meningioma at the left parietal vertex. Additional tiny meningio ma overlying the left posterior frontal lobe. Normal dural venous sinuses. Normal optic chiasm and pituitary infundibulum. Moderate symmetric atrophy involving the temporal lob es and hippocampal formations. MR/MR head wo/w con [id number] IMPRESSION: 1. Stable right frontal extra-axial meningioma measuring [address] 2. Additional tiny enhancing meningioma overlying the right frontal lobe anter iorly measuring 5 mm. 3. Additional tiny meningioma at the left parietal vertex and also overlying t he left posterior frontal lobe. 4. No restricted diffusion to suggest acute ischemia. 5. Moderate small vessel changes with moderate parenchymal volume loss. Chroni c lacunar infarcts described above. 6. Small vessel changes in the joy.
== END 2020-07-10 10:59 | disposition home or self-care (01) ==
LOC: RADSHAW 11:00
PROVIDERS: PCP Nurse Practitioner Family; Visit Provider Nurse Practitioner Family
DX: R26.81 Unsteadiness on feet (principal); D32.9 Benign neoplasm of meninges, unspecified; I63.81 Other cerebral infarction due to occlusion or stenosis of small artery
CPT/HCPCS: 70553; 80053; 84550; 85651; 86038; 86140; 86431; 96523; A9577

== ENCOUNTER 2020-07-24 06:19 | Outpatient (CLI) | payer BC, SELFPAY | END 2020-07-24 06:20 | disposition home or self-care (01) | LOC: ONCMED 06:20 | PROVIDERS: PCP Nurse Practitioner Family; Visit Provider Nurse Practitioner | DX: Z45.2 Encounter for adjustment and management of vascular access device (principal) | CPT/HCPCS: 96523 ==

== ENCOUNTER 2020-08-11 06:00 | Outpatient (RCR) | payer BC, SELFPAY | END 2020-09-03 23:00 | disposition home or self-care (01) | LOC: SPT 06:00 | PROVIDERS: PCP Nurse Practitioner Family; Referring Provider Specialist; Visit Provider Specialist | DX: R26.81 Unsteadiness on feet (principal) | CPT/HCPCS: 97110; 97161 ==

== ENCOUNTER → 2020-08-12 08:15 | Outpatient (BNVA) | payer BC, SELFPAY | PROVIDERS: PCP Nurse Practitioner Family; Visit Provider Specialist | DX: R26.9 Unspecified abnormalities of gait and mobility (principal); R42 Dizziness and giddiness; G91.2 (Idiopathic) normal pressure hydrocephalus; D64.9 Anemia, unspecified | CPT/HCPCS: 99205 ==

== ENCOUNTER 2020-08-22 09:57 | Outpatient (CLI) | payer BC, SELFPAY | END 2020-08-22 09:58 | disposition home or self-care (01) | LOC: ONCMED 09:59 | PROVIDERS: PCP Nurse Practitioner Family; Visit Provider Nurse Practitioner | DX: Z45.2 Encounter for adjustment and management of vascular access device (principal) | CPT/HCPCS: 96523 ==

== ENCOUNTER → 2020-09-01 09:41 | Outpatient (BNVA) | payer BC, SELFPAY | PROVIDERS: PCP Nurse Practitioner Family; Visit Provider Nurse Practitioner Family | DX: R19.7 Diarrhea, unspecified (principal) | CPT/HCPCS: 82270; 85014; 85018; 87493; 87506 ==

== ENCOUNTER 2020-09-26 10:40 | Outpatient (CLI) | payer BC, SELFPAY | END 2020-09-26 10:41 | disposition home or self-care (01) | PROVIDERS: PCP Nurse Practitioner Family; Visit Provider Nurse Practitioner | DX: Z45.2 Encounter for adjustment and management of vascular access device (principal) | CPT/HCPCS: 96523 ==

== ENCOUNTER 2020-10-19 12:28 | Emergency (ER) | payer BC, SELFPAY ==
[2020-10-19 12:29] VITALS: BP 185/90; PULSE 113; RESP 18; TEMP 36.8; O2SAT 98; BMI 27.5
--- NOTE | 2020-10-19 12:33 | XRR_ITS ---
PROCEDURE INFORMATION: Exam: XR Chest Exam date and time: 10/19/2020 12:48 PM Age: 55 years old Clinical indication: Other: AMS TECHNIQUE: Imaging protocol: XR of the chest. Views: 1 view. COMPARISON: CR Chest 1 [place] [id number] 06/29/2018 7:27 AM FINDINGS: Lungs: Unremarkable. No consolidation. Pleural spaces: Unremarkable. No pleural effusion. No pneumothorax. Heart/Mediastinum: Unremarkable. No cardiomegaly. Vasculature: A MediPort catheter is present with the tip projecting in the SVC. Bones/joints: Unremarkable. XR/XR chest 1V portable [id number] IMPRESSION: No significant cardiopulmonary abnormality.
--- NOTE | 2020-10-19 12:33 | ECG_ITS ---
[facility] Test Date: 2020-10-19 Pat Name: Korin Kee Department: Room: Gender: Female Hose Tender: : 1965 Requested By: Talia Ashford Order Number: [id number] Vignesh MD: Ida Berry M.D. Measurements Intervals [place]ott Rate: 107 P: 48 [place]: 153 QRS: 31 QRSD: 91 T: 9 QT: 310 QTc: 415 Interpretive Statements SINUS TACHYCARDIA POSSIBLE LEFT ATRIAL ENLARGEMENT [-0.1mV P WAVE IN V1/V2] Compared to ECG 06/29/2018 06:56:25 Supraventricular tachycardia no longer present ST (T wave) deviation no longer present Electronically Signed On 10-21-2020 9:35:38 CDT by Ida Berry M.D. [id number]
--- NOTE | 2020-10-19 12:33 | CTR_ITS ---
PROCEDURE INFORMATION: Exam: CT Head Without Contrast Exam date and time: 10/19/2020 12:36 PM Age: 55 years old Clinical indication: Altered mental status/memory loss and speech disturbance and weakness, facial; Confusion or disorientation; Slurred speech; Additional info: AMS TECHNIQUE: Imaging protocol: Computed tomography of the head without contrast. Radiation optimization: All CT scans at this facility use at least one of these dose optimization techniques: automated exposure control; mA and/or kV adjustment per patient size (includes targeted exams where dose is matched to clinical indication); or iterative reconstruction. COMPARISON: CT head wo/w con [id number] 01/28/2020 1:30 PM RADIATION DOSE METRICS: Total DLP (mGy-cm): 552.89 FINDINGS: Brain: There is a round high density acute hematoma in the left thalamus with surrounding low-density edema. This measures about 18.6 mm in greatest diameter. It has a volume of approximately 2 cc. There is generalized prominence of the ventricles and sulci due to chronic atrophy. There is patchy decreased white matter density which indicates chronic small vessel white matter ischemia. Cerebral ventricles: The ventricles are prominent due to chronic atrophy. Bones/joints: Unremarkable. No acute fracture. Paranasal sinuses: Visualized sinuses are unremarkable. No fluid levels. Mastoid air cells: Visualized mastoid air cells are well aerated. Soft tissues: Unremarkable. CT/CT head wo con* [id number] IMPRESSION: 1. There is an acute hematoma in the left thalamus having a volume of approximately 2 cc. 2. Generalized chronic atrophy with chronic white matter ischemic changes. Radiation Dose CTDIVOL = (mGy): DLP = 552.89 (mGy-cm)
--- NOTE | 2020-10-19 12:34 | ED_ITS ---
HPI - Altered Mental Status General: Chief Complaint: Neuro Symptoms/Deficit Stated Complaint: Stroke s/s Time Seen by Provider: 10/19/20 12:33 Source: patient and EMS Mode of arrival: EMS Limitations: altered mental status History of Present Illness: HPI narrative: Korin is a nice 55-year-old female brought in by EMS with report of altered mental status. They report right-sided facial droop, difficulty with speech and right upper extremity weakness. Patient was in her normal state of health when she went to bed at 1030 last night but at 3 AM woke up with the symptoms as described above. Patient has been unable to get around or do anything for herself until she was finally able to get to a phone and called family who found her in the state that she is in. EMS was called and she was transported here. Last known well time was 10:30 PM the night before and symptoms were present at 3 AM upon awakening. Review of Systems General: Reports: ROS unobtainable due to mental status PFS ED PFSH: Medical History Anemia Bilateral leg edema Chronic hepatitis C without hepatic coma COVID-19 Diabetes mellitus Glanzmann thrombasthenia Hypothyroid Incomplete right bundle branch block Seasonal depression SVT (supraventricular tachycardia) Thrombocytopenia Surgical History History of cholecystectomy Social History Smoking and tobacco status: never smoked Second hand smoke exposure: No Alcohol intake: current Alcohol intake frequency: few times a month Caregiver/support person: No Lives independently: Yes Marital status: Single Current occupational status: retired Current occupation: [employer] History of recent travel: No Current gender identity: Female Physical Exam Const: COMMON NORMALS: no acute distress, patient oriented x3 and alert GENERAL APPEARANCE: cooperative and lethargic ORIENTATION/CONSCIOUSNESS: Yes lethargic HENMT: COMMON NORMALS: normocephalic, atraumatic, external ears normal, EAC's normal and Normal external nose present HEAD & SCALP: normal to inspection, normocephalic and atraumatic FACE & SINUS: normal facial exam and face symmetric NOSE: Normal external nose present and Normal nares present EXTERNAL EAR: Yes external ears normal EXTERNAL AUDITORY CANAL: EAC's normal MOUTH: Normal oral and palatal mucosa present, lip normal, tongue normal and other (Bleeding come from gingival tissues of upper teeth) Eye: COMMON NORMALS: Equal, round and reactive pupils present and conjunctivae normal GENERAL EYE: appearance normal, both eyes and all related structures ALIGNMENT: Yes alignment normal PERIORBITAL: periorbital findings normal EYELID: eyelids normal CONJUNCTIVA: Yes conjunctivae normal SCLERA: sclerae normal PUPIL: Yes Equal, round and reactive pupils present Neck/C-Spine: COMMON NORMALS: full ROM, no lymphadenopathy, supple, no meningeal signs and no JVD GENERAL: Yes normal visual inspection and Yes trachea midline Chest: COMMONS NORMALS: normal inspection of the chest and normal palpation of entire chest wall Resp: COMMON NORMALS: normal respiratory effort, No retractions, No use of accessory muscles and clear to auscultation bilaterally EFFORT & INSPECTION: Yes able to speak in complete sentences and Yes symmetric chest movement AUSCULTATION: clear to auscultation bilaterally, no crackles, no rales, no rhonchi and no wheezes Cardio: COMMON NORMALS: no JVD, regular rate, regular rhythm, S1 normal heart sound present and S2 normal heart sound present RATE: regular rate RHYTHM: regular rhythm HEART SOUNDS: S1 normal heart sound present, S2 normal heart sound present, no click, no gallops, no murmurs and no rubs GI: COMMON NORMALS: Soft to palpation and No hepatosplenomegaly present PALPATION: Yes Soft to palpation, No Tenderness to palpation present (GI), No Guarding due to palpation present (GI), No Rigid due to palpation, Yes No hepatosplenomegaly present, No Hernia present, No Palpable mass present and No Pulsatile mass present : COMMON NORMALS: Yes no CVA tenderness BLADDER/KIDNEY EXAM: Yes no CVA tenderness EXTERNAL FEMALE EXAM: No Hernia present Back/Pelvis: COMMON NORMALS: no CVA tenderness, thoracic and lumbar spine normal to inspection, no thoracic nor lumbar tenderness and thoraco-lumbar ROM normal Extremity: COMMON NORMALS: normal to inspection, full ROM, capillary refill normal, no joint enlargement, no clubbing, cyanosis or edema and no calf tenderness Neuro: COMMON NORMALS: patient oriented x3 SENSORIUM/ORIENTATION: Yes alert and Yes lethargic MENINGEAL SIGNS: Yes no meningeal signs SPEECH: abnormal speech Details: garbled and slurred OTHER: Patient with right-sided arm weakness along with right-sided facial droop and mild aphasia with slurred speech Skin: COMMON NORMALS: no rashes or lesions noted, turgor normal, no jaundice, no petechiae and no mottling GENERAL SKIN EXAM: no rashes or lesions noted and turgor normal Course Vital Signs: Vital signs: Vital Signs Temperature 98.2 F 10/19/20 12:29 Pulse Rate 110 H 10/19/20 12:45 Respiratory Rate 18 10/19/20 12:45 Blood Pressure 167/83 10/19/20 12:45 Pulse Oximetry 100 10/19/20 12:45 MDM - Altered Mental Status MDM Narrative: Medical decision making narrative: 1243 -attempting to reach [facility] for transfer. We have contacted all available air ambulance services and they are not flying secondary to weather. 1301 -the case was reviewed with Dr. Germain out of [facility] in [place]. He will accept the patient in transfer. He agrees with a Cardene drip to keep the patient's blood pressure less than 160 and he understands that no air ambulance services are flying. The patient's symptoms have not changed. We will work on transferring the patient there by ground ambulance life threat emergent. Lab Data: Attestation: I reviewed the patient's lab results. Imaging Data^: CT Head: My impression: Verbal report from Dr. Nair the virtual radiologist -2 cc volume left thalamic hematoma with mild edema and mass-effect. EKG Data^: EKG 1: Attestation: I personally reviewed and interpreted this EKG as follows: Interpretation: Sinus tachycardia at 107, normal axis, no blocks, normal intervals, T waves inverted in V2 and V3. Otherwise unremarkable Critical Care Time Critical Care Time: Critical Care Time: Yes Total Critical Care Time: 30 Attestation: Critical care time consisted of individual one-on-one care of the patient. Care time consisted of managing blood pressures, thorough neurologic evaluations, arranging for transport and for review of radiologic studies. Discharge Plan Discharge Patient Disposition: Xfer Short-Term Hosp Clinical Impression: Thalamic hemorrhage with stroke Condition: Stable Referrals: Ariane Webster FNP [Primary Care Provider] - Coding Level of Care Code ED Medical Officer for Chg Fwd Exam Comprehensive
[2020-10-19 12:45] VITALS: BP 167/83; PULSE 110; RESP 18; O2SAT 100
[2020-10-19 13:22] LABS: Basophils % 0.2 %; Eosinophils % 0.1 %; Hematocrit 29.8 % (37.0-47.0); Hemoglobin 9.1 g/dL (11.5-15.3); Lymphocytes # 0.3 10^3/uL (0.8-4.8); Lymphocytes % 2.7 %; Mean Corpuscular HGB Conc 30.5 g/dL (30.0-36.0); Mean Corpuscular Hemoglobin 26.1 pg (28.0-34.0); Mean Corpuscular Volume 85.6 fL (81-99); Mean Platelet Volume 12.8 fL (7.4-10.4); Monocytes # 0.6 10^3/uL (0.2-0.9); Monocytes % 6.1 %; Neutrophils # 8.49 10^3/uL (1.8-7.7); Neutrophils % 90.6 %; Nucleated Red Blood Cells % 0 %; Platelet Count 313 10^3/cmm (130-400); Red Blood Count 3.48 10^6/uL (4.1-5.3); White Blood Count 9.4 10^3/uL (4.0-10.0)
[2020-10-19] MEDS: dexamethasone 10 mg/mL INJ IVP (13:23)
[2020-10-19] MEDS: nicardipine 20 MG/200 ML PREMIX 50 MG IV (13:24)
[2020-10-19] MEDS: sodium chloride 0.9% 1,000 ML 100 ML IV (13:29)
[2020-10-19 13:40] LABS: Partial Thromboplastin Time 25.8 SECONDS (23.9-36.7)
[2020-10-19 13:43] LABS: Alanine Aminotransferase 96 U/L (0-33); Albumin Level 2.7 g/dL (3.5-5.2); Alkaline Phosphatase 193 IU/L (35-105); Anion Gap 21.4 (5-19); Aspartate Amino Transferase 145 U/L (0-32); Blood Urea Nitrogen 21 mg/dL (6-20); Calcium 8.8 mg/dL (8.5-10.5); Carbon Dioxide 18 mmol/L (22-29); Chloride 98 mmol/L (98-107); Creatine Phosphokinase 77 U/L (26-192); Globulin 4.4 g/dL (1.3-4.6); Glomerular Filtration Rate 64.8 mL/min (90-130); Glucose 254 mg/dL (65-115); Osmolality Calculated 288 mOsm/kg (285-295); Potassium 4.4 mmol/L (3.5-5.1); Sodium 133 mmol/L (136-145); Total Bilirubin 0.2 mg/dL (0.15-1.2); Total Protein 7.1 g/dL (6.6-8.7)
[2020-10-19 13:45] LABS: Alcohol Level < 10 mg/dL (0-10)
[2020-10-19 13:48] VITALS: BP 173/83; PULSE 113; RESP 20; O2SAT 99
[2020-10-19 13:49] LABS: INR 1.17 (0.8-1.2)
[2020-10-19 14:28] VITALS: BP 169/86; PULSE 116; RESP 18; TEMP 36.9; O2SAT 99
== END 2020-10-19 14:30 | disposition short-term general hospital (02) ==
PROVIDERS: Emergency Provider Emergency Medicine; PCP Nurse Practitioner Family
DX: I63.9 Cerebral infarction, unspecified (principal); E11.9 Type 2 diabetes mellitus without complications
CPT/HCPCS: 70450; 71045; 80053; 80307; 82550; 85025; 85610; 85730; 93005; 96365; 96375; 99291; J1100; J7030